=== PATIENT | male | born 1985 | race Caucasian/White ===

== ENCOUNTER 2017-09-29 00:12 | Emergency (ER) | payer MEDICAID ==
[~2017-09-29] VITALS: Ht 180.3 cm; Wt 83.9 kg
[2017-09-29] MEDS ORDERED: HYDROCODONE/APAP 10-325 MG TABLET PO ONE (01:00)
[2017-09-29] MEDS ORDERED: HYDROCODONE/APAP 10-325 MG TABLET ONE (01:04)
--- NOTE | 2017-09-29 01:07 | NUR ---
Patient discharged to home in stable conditon. Written and verbal after care instructions given. Patient verbalizes understanding of instructions. Finger splint applied. Pain medication given. Pt's significant other to drive home. VSS. No acute distress noted.
[2017-09-29 01:09] VITALS: BP 149/96
== END 2017-09-29 01:18 | disposition home or self-care (01) ==
LOC: ER 00:15
DX: S62.631A Displaced fracture of distal phalanx of left index finger, initial encounter for closed fracture (principal); X58.XXXA Exposure to other specified factors, initial encounter; Y93.89 Activity, other specified; Y92.89 Other specified places as the place of occurrence of the external cause; Y99.8 Other external cause status
CPT/HCPCS: 29130; 73130; 99284; A4663